=== PATIENT | male | born 1975 | race Caucasian/White ===

== ENCOUNTER → 2025-07-06 12:29 | Outpatient (REF) | payer OTHER, SELFPAY | LOC: RAD 12:29 | PROVIDERS: ATTENDING PHYSICIAN Nurse Practitioner Adult Health | DX: R31.29 Other microscopic hematuria (principal); R39.9 Unspecified symptoms and signs involving the genitourinary system; R31.9 Hematuria, unspecified | CPT/HCPCS: 74018 ==